=== PATIENT | female | born 1930 ===

== ENCOUNTER 2019-05-08 07:55 | Outpatient (CLI) | payer OTHER | END 2019-05-08 10:18 | disposition home or self-care (01) | LOC: TOM 07:55 | DX: K21.9 Gastro-esophageal reflux disease without esophagitis (principal); R13.19 Other dysphagia; Z80.0 Family history of malignant neoplasm of digestive organs ==

== ENCOUNTER 2020-07-30 08:44 | Outpatient (CLI) | payer OTHER | END 2020-07-30 08:52 | disposition home or self-care (01) | LOC: RX STUDY 08:44 | PROVIDERS: ATTEND Internal Medicine Gastroenterology | DX: K44.9 Diaphragmatic hernia without obstruction or gangrene (principal); K22.2 Esophageal obstruction ==